=== PATIENT | male | born 1995 | race Caucasian/White ===

== ENCOUNTER 2017-02-20 15:52 | Observation (INO) | payer OTHER ==
[~2017-02-20] VITALS: Ht 172.7 cm; Wt 63.6 kg
[2017-02-20] MEDS: NAPROXEN 250 MG TAB PO SCH (02:56)
[2017-02-20] MEDS: MORPHINE 2 MG/ML 1ML SYRINGE IV PRN ×4 (16:29→22:01)
[2017-02-20] MEDS ORDERED: MORPHINE 2 MG/ML 1ML SYRINGE As Ordered ONE ×2 (21:44→21:52)
[2017-02-20] MEDS ORDERED: ROCURONIUM BROMIDE 50 MG/5 ML VIAL/SYRINGE As Ordered ONE (23:29)
[2017-02-20] MEDS ORDERED: PROPOFOL 200 MG/20 ML VIAL As Ordered ONE (23:29)
[2017-02-20] MEDS ORDERED: LIDOCAINE 2% INJ 100 MG/5 ML SDV (FOR ANES.) As Ordered ONE (23:29)
[2017-02-20] MEDS ORDERED: MIDAZOLAM INJ 2 MG/2 ML VIAL (J2250) As Ordered ONE (23:29)
[2017-02-20] MEDS ORDERED: fentaNYL 250 MCG/5 ML INJECTION (J3010) As Ordered ONE (23:29)
[2017-02-20] MEDS ORDERED: dexameTHASONE 4 MG/ML 1ML VIAL (J1100) As Ordered ONE (23:51)
[2017-02-20] MEDS ORDERED: GLYCOPYRROLATE INJ 0.2 MG/ML 2 ML VIAL As Ordered ONE (23:57)
[2017-02-20] MEDS ORDERED: NEOSTIGMINE 10 MG/10 ML VIAL (J2710) As Ordered ONE (23:57)
[2017-02-21] MEDS ORDERED: LIDOCAINE W/EPINEPHRINE 1% 20ML VIAL As Ordered ONE (00:57)
[2017-02-21] MEDS ORDERED: BUPIVACAINE/EPIN 0.5% 30 ML VIAL As Ordered ONE (00:58)
[2017-02-21] MEDS: fentaNYL 100 MCG/2 ML INJECTION (J3010) IV PRN ×2 (01:39→01:44)
[2017-02-21] MEDS ORDERED: LR 1,000 ML IV SCH (01:45)
[2017-02-21] MEDS ORDERED: ONDANSETRON 4MG/2ML VIAL (J2405) IV PRN ×2 (01:45→02:00)
[2017-02-21] MEDS ORDERED: MORPHINE 2 MG/ML 1ML SYRINGE IV PRN (01:45)
[2017-02-21 02:00] VITALS: BP 133/74
[2017-02-21] MEDS ORDERED: PERCOCET 5MG/325MG TAB PO PRN (02:00)
[2017-02-21 03:00] VITALS: BP 126/77
[2017-02-21] MEDS: PERCOCET 5MG/325MG TAB PO PRN ×2 (03:39→09:57)
[2017-02-21 04:00] VITALS: BP 121/72
[2017-02-21 05:00] VITALS: BP 119/65
--- NOTE | 2017-02-21 07:00 | IPNPDOC ---
Date Seen The patient was seen on 02/21/17. Progress Note Post op/compartment check SUBJECTIVE: Patient is a 21 y/o male s/p R tibia IMN. Patient came up to floor approximately 2am. Rested comfortably overnight. Pain controlled. OBJECTIVE PHYSICAL EXAMINATION: VITAL SIGNS: Please see below. GENERAL: well nourished, no acute distress CARDIOVASCULAR: 2+ DP pulse, BCR all digits RLE. RESPIRATORY: non labored breathing. EXTREMITIES: RLE dressings in place. Able to actively flex/extend all toes. No pain with passive stretch of ankle/toes. Compartments nontender NEUROLOGICAL: sensation/motor intact all RLE distributions PSYCHOLOGICAL: LABORATORY DATA: Please see below. MICROBIOLOGY: Please see below. IMAGING: post op xray pending DVT prophylaxis ordered?: SCD's ambulation ASSESSMENT: This is a 21 y/o male s/p R tibia IMN doing well PLAN: 1. touch down WB RLE 2. PT for crutch ambulation 3. d/c home after PT/post op xray 4. f/u appointment in chart VS, I&O, 24H, Olivia Vital Signs/I&O Vital Signs Date Time Temp Pulse Resp B/P (MAP) Pulse Ox O2 Delivery O2 Flow Rate FiO2 02/21/17 05:00 99.2 63 18 119/65 (83) 97 Room Air GOOD TEJADA MD Feb 21, 2017 07:00
--- NOTE | 2017-02-21 08:15 | REP ---
Clinical: Fracture reduction. Technique: Intraoperative fluoroscopic imaging. Findings: Multiple intraoperative fluoroscopic images demonstrate the patient to be status post intramedullary rose placement for tibial shaft fracture. Satisfactory placement of the orthopedic hardware and fracture reduction is appreciated. Total fluoroscopic time 151 seconds. Impression: Status post satisfactory open reduction and fixation for tibial shaft fracture. Signed by Austin Dhillon MD 02/21/2017 08:07 A
--- NOTE | 2017-02-21 08:28 | REP ---
Clinical: Status post open reduction and fixation. Technique: AP and lateral views of the right tibia / fibula. Findings: The patient is status post open reduction and fixation with intramedullary rose through the tibial shaft and satisfactory reduction at the spiral tibial shaft fracture. A small nondisplaced fracture of the proximal fibular shaft is identified. Impression: Status post open reduction and fixation for spiral tibial diaphyseal fracture. Small nondisplaced proximal fibular shaft fracture. Signed by Austin Dhillon MD 02/21/2017 08:20 A
[2017-02-21] MEDS: NAPROXEN 250 MG TAB PO SCH (08:44)
--- NOTE | 2017-02-21 09:46 | RO ---
DATE OF PROCEDURE: 02/20/2017 PREOPERATIVE DIAGNOSIS: Right tibial shaft fracture. POSTOPERATIVE DIAGNOSIS: Right tibial shaft fracture. PROCEDURE PERFORMED: Right tibia closed reduction intramedullary nail fixation. SURGEON: Micheal Mooney MD FRAUD PREVENTION ANALYST: none ANESTHESIA PROVIDER: Cooper Xavier MD ANESTHESIA GIVEN: General endotracheal anesthesia and local. IMPLANTS USED: Hussain 10 mm x 360 mm suprapatellar tibial nail with 60 mm and 45 mm proximal interlocking screws and 37.5 mm and 35 mm distal interlocking screws. ANTIBIOTICS: 2 grams Ancef given within 1 hour of incision. ESTIMATED BLOOD LOSS: 150 mL. MATERIAL SENT TO THE LAB: None. COMPLICATIONS: None. 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 He presented to the clinic with this injury. The patient on initial exam had no open wounds and no physical exam findings suggestive of compartment syndrome. Given the nature of his injury, I counseled the patient on the risks, benefits, indications and alternatives of operative versus nonoperative treatment and recommended surgical management with intramedullary nail fixation. The patient expressed understanding and provided informed consent for right tibia intramedullary nail fixation. INTRAOPERATIVE FINDINGS: Fracture was anatomically reduced. Length, alignment and rotation were restored and the knee exam under anesthesia was normal after fixation. DESCRIPTION OF PROCEDURE: The patient was positively identified in the preoperative holding area where the surgical site was marked. He was then brought to the operating room where he was placed under general endotracheal anesthesia. He was positioned supine on a regular table with all bony prominences appropriately padded. Sequential compression device was placed on the nonoperative extremity for deep vein thrombosis (DVT) prophylaxis. He was then prepped and draped in the usual sterile fashion. A final time out was performed. I began by making a 3 cm incision starting one fingerbreadth proximal to the superior pole of the patella. I dissected through the skin and subcutaneous tissue, identified the quadriceps tendon and split the quadriceps tendon longitudinally, introduced the suprapatellar sleeve to appropriate depth. I then placed the starting guidepin just medial to the lateral tibial spine, AP and just anterior to the subchondral bone on the lateral of the knee. The starting guidepin was placed in appropriate depth. The two other K-wires to hold the internal sleeve guide in place were placed. The opening reamer was then placed into the tibia in a standard fashion. The ball tip Guidewire was then introduced and placed centered at the ankle using C-arm fluoroscopic guidance. After confirmation of placement of the Guidewire, I obtained anatomic reduction using a pointed reduction clamp, two small stab incisions were made near the fracture site for placement of a reduction tenaculum, where anatomic reduction was made with the fracture fragments. At this point, after anatomic reduction, the nail was measured to a length of 360 mm and then sequentially reamed in a standard fashion to 11 mm and then placed the 10 x 360 mm nail. I then placed two interlocking screws from medial to lateral using the standard drill sleeve guide. I then placed two additional distal interlocking screws using standard perfect chehalis technique to lock the nail in place after placement of all interlocking screws. I took final fluoroscopic images to confirm maintenance of anatomic reduction, length, alignment and rotation of the fracture, which was confirmed. I then performed a knee exam under anesthesia which revealed negative pivot shift, 1A Taty, and solid end points stable to varus and valgus stress. After final fluoroscopic images were taken and the exam was complete, I then thoroughly irrigated the wounds with normal saline and closed in layers. The quadriceps tendon layer was closed with #0 Vicryl suture in a running fashion. The subcutaneous layer was closed with #2-0 Vicryl and donna for the skin. The interlocking screw holes and the stab incisions for the reduction clamp were all closed with donna. I then injected a mixture of 1% lidocaine with epinephrine , 0.25% Marcaine with epinephrine into all of the incisions for postoperative pain control. Sterile dressings were applied. This ended the procedure. I was present and scrubbed in for all portions of the case. POSTOPERATIVE PLAN: The patient will be touchdown weightbearing to the right lower extremity. He will return to the hospital floor for observation and compartment checks, and he will be discharged tomorrow when criteria met after he has cleared physical therapy. HYUN
[2017-02-21 10:00] VITALS: BP 130/60
== END 2017-02-21 10:40 | disposition home or self-care (01) ==
LOC: M SDC 15:52 → M MS5PR 02-21 02:05 → M SDC 02-21 02:44
PROVIDERS: ADMIT Orthopaedic Surgery; ATTEND Orthopaedic Surgery
DX: S82.201A Unspecified fracture of shaft of right tibia, initial encounter for closed fracture (principal); W19.XXXA Unspecified fall, initial encounter; Y92.89 Other specified places as the place of occurrence of the external cause; Y93.83 Activity, rough housing and horseplay; Y99.8 Other external cause status; F17.210 Nicotine dependence, cigarettes, uncomplicated
CPT/HCPCS: 27759; 73590; 97116; A4649; C1713; J1100; J2250; J2710; J3010